=== PATIENT | female | born 1965 ===

== ENCOUNTER 2023-08-14 04:50 | Day surgery (SDC) | payer BC ==
[2023-08-12 13:34] VITALS: BMI 44.9
[2023-08-14] MEDS ORDERED: ceFAZolin SODIUM 1 GM VIAL IVPB ONE (14:18)
[2023-08-14] MEDS ORDERED: ACETAMINOPHEN INJECTION 100 ML IVPB ONE (14:54)
[2023-08-14] MEDS ORDERED: ONDANSETRON 4 MG/2 ML VIAL IVPUSH PRN (15:14)
[2023-08-14] MEDS ORDERED: PROMETHAZINE HCL 25 MG/1 ML VIAL IVPB PRN (15:14)
[2023-08-14] MEDS ORDERED: oxyCODONE HCL 5 MG TABLET PO PRN (15:14)
[2023-08-14] MEDS ORDERED: LACTATED RINGERS SOLUTION 1,000 ML IV SCH (15:15)
[2023-08-14 15:52] VITALS: RESP 18
[2023-08-14 17:34] VITALS: BP 137/79; PULSE 63; TEMP 96.9
== END 2023-08-14 17:30 | disposition home or self-care (01) ==
LOC: JASU-SURG 04:50
PROVIDERS: ATTEND Obstetrics & Gynecology
PROC: 0UDB8ZX Extraction of Endometrium, Via Natural or Artificial Opening Endoscopic, Diagnostic (ICD-10-PCS; principal; 2023-08-14 13:30)
DX: N95.0 Postmenopausal bleeding (principal)
CPT/HCPCS: 81025; 88305-TC; 94760